=== PATIENT | male | born 1970 | race Caucasian/White ===

== ENCOUNTER 2018-06-16 19:34 | Emergency (ER) | payer MEDICAID ==
[~2018-06-16] VITALS: Ht 167.6 cm; Wt 82.6 kg
[2018-06-16 19:53] VITALS: Ht 167.6 cm; Wt 82.6 kg
[2018-06-16 21:53] VITALS: BP 118/85
== END 2018-06-16 21:53 | disposition home or self-care (01) ==
LOC: ED 19:34
DX: J40 Bronchitis, not specified as acute or chronic (principal); J06.9 Acute upper respiratory infection, unspecified

== ENCOUNTER 2018-07-08 15:12 | Emergency (ER) | payer MEDICAID ==
[~2018-07-08] VITALS: Ht 167.6 cm; Wt 84.4 kg
[2018-07-08 15:22] VITALS: Ht 167.6 cm; Wt 84.4 kg
[2018-07-08 18:54] VITALS: BP 137/68
== END 2018-07-08 18:54 | disposition home or self-care (01) ==
LOC: ED 15:12
DX: R10.84 Generalized abdominal pain (principal); R11.10 Vomiting, unspecified; R19.7 Diarrhea, unspecified; R03.0 Elevated blood-pressure reading, without diagnosis of hypertension
CPT/HCPCS: Q0162